=== PATIENT | female | born 1935 | race Caucasian/White ===

== ENCOUNTER 2021-09-30 06:53 | Emergency (ER) | payer MEDICARE ==
[2021-09-30] MEDS ORDERED: Dexamethasone 10 MG/ML VIAL ONE (07:17)
[2021-09-30] MEDS ORDERED: Fentanyl 100 MCG/2 ML VIAL ONE (07:17)
[2021-09-30] MEDS ORDERED: Ketorolac Tromethamine 30 MG/ML VIAL ONE (07:17)
[2021-09-30 09:30] LABS: Bacteria/HPF None Seen HPF (None Seen); Bilirubin Negative (Negative); Blood, Urine Negative (Negative); Clarity Clear (Clear); Glucose, Urine (Dipstick) Normal (Negative); Ketone, Urine Negative (Negative); Leukocyte 500 Leu/uL (Negative); Nitrite Negative (Negative); Protein, Urine (Dipstick) 10 mg/dL (Neg-Trace); RBC/HPF 0-3 HPF (0-3); Squamous Epithelial 0-3 HPF (0-3); Urobilinogen Normal mg/dL (Less than 2); WBC/HPF Greater than 50 HPF (0-3)
== END 2021-09-30 09:52 | disposition home or self-care (01) ==
LOC: ERS 06:53
DX: M54.42 Lumbago with sciatica, left side (principal); I10 Essential (primary) hypertension; Z79.899 Other long term (current) drug therapy
CPT/HCPCS: 81003; 81015; 87086; 96374; 96375; J1100; J1885; J3010

== ENCOUNTER 2021-10-13 19:18 | Emergency (ER) | payer MEDICARE ==
[~2021-10-13 19:18] MED LIST: Iopamidol 370 76% 100 ML VIAL ONE
[2021-10-13] MEDS ORDERED: Morphine 4 MG/ML VIAL ONE ×2 (20:05→21:57)
[2021-10-13] MEDS ORDERED: Ondansetron PF 4 MG/2 ML Vial ONE ×2 (20:05→22:07)
[2021-10-13 20:49] LABS: Hemoglobin 12.3 g/dL (12.0-16.0); Mean Corpuscular HGB CONC 31.4 g/dL (32.0-36.0); Mean Corpuscular Hemoglobin 29.2 pg (27.0-31.0); Mean Corpuscular Volume 93.1 fL (78.0-98.0); Mean Platelet Volume 8.7 fL (7.4-10.4); Platelet Count 267 thou/uL (130-400); RBC Distribution Width 13.1 % (11.5-14.5); White Blood Cell (WBC) Count 68.7 thou/uL (4.8-10.8)
[2021-10-13 20:57] LABS: ALT (SGPT) 27 U/L (8-55); AST (SGOT) 13 U/L (5-34); Albumin 3.9 g/dL (3.4-4.8); Alkaline Phosphatase 125 U/L (40-110); Anion Gap 13 mmol/L (10-20); BUN (Urea Nitrogen) 34 mg/dL (9.8-20.1); Bilirubin, Total 0.4 mg/dL (0.2-1.2); Calc. Creatinine Clearance 0 mL/min (70-130); Calcium 9.2 mg/dL (7.8-10.44); Carbon Dioxide 25 mmol/L (23-31); Chloride 96 mmol/L (98-107); Globulin 2.2 g/dL (2.4-3.5); Glucose 107 mg/dL (83-110); Lipase 28 U/L (8-78); Potassium 5.3 mmol/L (3.5-5.1); Protein, Total 6.1 g/dL (5.8-8.1); Sodium 129 mmol/L (136-145)
[2021-10-13 21:07] LABS: Band 1 % (5-11); Lymphocytes 84 % (21-51); MDiff Complete? YES; Monocytes 1 % (0-10); Neutrophil 14 % (42-75); Platelet Morphology Comment Appears Adequate; RBC Morphology Normal
[2021-10-13 21:08] LABS: Reflex for Review?? YES
[2021-10-13 21:24] LABS: Bacteria/HPF 4+ HPF (None Seen); Bilirubin Negative (Negative); Blood, Urine 1+ (Negative); Clarity Extra Turbid (Clear); Glucose, Urine (Dipstick) Normal (Negative); Ketone, Urine Negative (Negative); Leukocyte 500 Leu/uL (Negative); Nitrite Negative (Negative); Protein, Urine (Dipstick) 10 mg/dL (Neg-Trace); Specific Gravity, Urine 1.013 (1.002-1.036); Squamous Epithelial 0-3 HPF (0-3); Urobilinogen Normal mg/dL (Less than 2); WBC/HPF Greater than 50 HPF (0-3); pH, Urine 5.5 (5.0-9.0)
== END 2021-10-13 22:30 | disposition home or self-care (01) ==
LOC: ERS 19:18
DX: M54.50 Low back pain, unspecified (principal); C91.10 Chronic lymphocytic leukemia of B-cell type not having achieved remission; I10 Essential (primary) hypertension
CPT/HCPCS: 36415; 74177; 80053; 81003; 81015; 83690; 85025; 85060; 96374; 96375; 96376; J2270; J2405; Q9967